=== PATIENT | female | born 1945 | race Caucasian/White ===

== ENCOUNTER 2024-11-22 15:08 | Observation (INO) | payer MEDICARE, MEDICAID ==
[2024-11-22] MEDS ORDERED: Sodium Chloride 0.9% 10 ML Syringe FLUSH PRN (15:13)
[2024-11-22 15:25] LABS: BASOPHILS ABSOLUTE AUTO 0.02 10^3/uL (0.00-0.10); BASOPHILS PERCENT AUTO 0.2 % (0.0-1.0); EOSINOPHILS ABSOLUTE AUTO 0.54 10^3/uL (0.10-0.30); EOSINOPHILS PERCENT AUTO 5.6 % (1.0-3.0); IMMATURE GRAN ABSOLUTE AUTO 0.02 10^3/uL (0.00-0.04); IMMATURE GRAN PERCENT AUTO 0.2 % (0.0-0.4); LYMPHOCYTES ABSOLUTE AUTO 0.70 10^3/uL (1.00-4.00); LYMPHOCYTES PERCENT AUTO 7.3 % (20.0-40.0); MEAN PLATELET VOLUME 11.4 fL (7.4-10.4); MONOCYTES ABSOLUTE AUTO 0.77 10^3/uL (0.10-0.80); MONOCYTES PERCENT AUTO 8.1 % (2.0-8.0); NEUTROPHILS ABSOLUTE AUTO 7.51 10^3/uL (2.50-7.00); NEUTROPHILS PERCENT AUTO 78.6 % (50.0-70.0); PLATELET COUNT,PLT 220 10^3/uL (150-400); RED BLOOD CELL COUNT 4.15 10^6/uL (3.80-5.50); RED CELL DISTRIBUTION WIDTH 17.2 % (11.5-14.5); WHITE BLOOD CELL COUNT,WBC 9.56 10^3/uL (5.00-10.00)
[2024-11-22 15:41] LABS: ALANINE AMINOTRANSFERASE,ALT 26 U/L (14-63); ASPARTATE AMNIOTRANSFERASE,AST 32 U/L (15-37); BILIRUBIN TOTAL 0.6 mg/dL (0.2-1.0); BLOOD UREA NITROGEN,BUN 13 mg/dL (7-18); CARBON DIOXIDE,CO2 32.9 mmol/L (21.0-32.0); CHLORIDE,CL 97 mmol/L (98-107); CREATININE 0.83 mg/dL (0.51-1.17); GLUCOSE RANDOM 103 mg/dL (70-140); POTASSIUM,K 4.9 mmol/L (3.5-5.1); PROTEIN TOTAL,TP 7.4 g/dL (6.4-8.2); SODIUM,NA 134 mmol/L (136-145)
[2024-11-22 15:42] LABS: B-TYPE NATRIURETIC PEPTIDE,BNP 230 pg/mL (0-100); ESTIMATED GFR 72 mL/min (>=60)
[2024-11-22 16:42] LABS: O2 SATURATION ARTERIAL,POC 95.6 % (94-98); PCO2 ARTERIAL,POC 47 mmHg (35-48); PH ARTERIAL,POC 7.42 pH (7.35-7.45); PO2 ARTERIAL,POC 79 mmHg (83-108)
[2024-11-22 16:43] LABS: BASE EXCESS ARTERIAL,POC 5 mmol/L ((-2)-3); HCO3 ARTERIAL,POC 30.4 mmol/L (21-28); TCO2 ARTERIAL,POC 29 mmol/L (22-29)
[2024-11-22] MEDS: Iopamidol 755 Mg/ML 100 ML Bottle IV ONE (17:06)
[2024-11-22 17:33] LABS: APPEARANCE,URINE CLEAR (CLEAR); GLUCOSE,URINE NEGATIVE (NEGATIVE); OCCULT BLOOD,URINE TRACE-INTACT (NEGATIVE)
[2024-11-22 17:41] LABS: EPITHELIAL CELLS,URINE RARE /LPF
[2024-11-22] MEDS: Furosemide 40 MG/4 ML VIAL IVPUSH ONE (18:06)
[2024-11-22] MEDS ORDERED: Fluticasone NASAL Spray 16 GM Bottle NASBOTH PRN (22:33)
[2024-11-22] MEDS ORDERED: Saliva Substitute Oral Spray 120 ML Bottle MUCMEM PRN (22:33)
[2024-11-22] MEDS ORDERED: guaiFENesin 100 MG/5 ML Soln 5 ML UD Cup PO PRN (22:33)
[2024-11-22] MEDS ORDERED: Acetaminophen 650 MG Tab.ER PO PRN (22:33)
[2024-11-22] MEDS ORDERED: Non-Formulary Medication 1 Each (Alendronate Sodium [Alendronate Sodium] 70 MG Tablet) PO SCH (22:45)
[2024-11-22] MEDS: Acetaminophen 650 MG Tab.ER PO SCH (23:50)
[2024-11-23] MEDS: Omeprazole 20 MG Cap.CR PO SCH (05:51)
[2024-11-23 07:30] LABS: BASOPHILS ABSOLUTE AUTO 0.03 10^3/uL (0.00-0.10); BASOPHILS PERCENT AUTO 0.4 % (0.0-1.0); EOSINOPHILS ABSOLUTE AUTO 0.47 10^3/uL (0.10-0.30); EOSINOPHILS PERCENT AUTO 5.6 % (1.0-3.0); IMMATURE GRAN ABSOLUTE AUTO 0.02 10^3/uL (0.00-0.04); IMMATURE GRAN PERCENT AUTO 0.2 % (0.0-0.4); LYMPHOCYTES ABSOLUTE AUTO 0.65 10^3/uL (1.00-4.00); LYMPHOCYTES PERCENT AUTO 7.7 % (20.0-40.0); MEAN PLATELET VOLUME 11.2 fL (7.4-10.4); MONOCYTES ABSOLUTE AUTO 0.66 10^3/uL (0.10-0.80); MONOCYTES PERCENT AUTO 7.8 % (2.0-8.0); NEUTROPHILS ABSOLUTE AUTO 6.62 10^3/uL (2.50-7.00); NEUTROPHILS PERCENT AUTO 78.3 % (50.0-70.0); PLATELET COUNT,PLT 238 10^3/uL (150-400); RED BLOOD CELL COUNT 4.04 10^6/uL (3.80-5.50); RED CELL DISTRIBUTION WIDTH 17.4 % (11.5-14.5); WHITE BLOOD CELL COUNT,WBC 8.45 10^3/uL (5.00-10.00)
[2024-11-23 07:53] LABS: BLOOD UREA NITROGEN,BUN 12.0 mg/dL (7-18); CARBON DIOXIDE,CO2 37.7 mmol/L (21.0-32.0); CHLORIDE,CL 95.0 mmol/L (98-107); CREATININE 0.86 mg/dL (0.51-1.17); EST CRCL DRUG DOSING (CG) 44.6 mL/min; GLUCOSE RANDOM 106.0 mg/dL (70-140); POTASSIUM,K 3.9 mmol/L (3.5-5.1); SODIUM,NA 136.0 mmol/L (136-145)
[2024-11-23 07:59] LABS: ESTIMATED GFR 69.0 mL/min (>=60)
[2024-11-23] MEDS: Acetaminophen 650 MG Tab.ER PO SCH ×2 (08:38→13:42)
[2024-11-23] MEDS: Calcium Citrate/Vitamin D3 315 MG-250 Unit Tab PO SCH (08:41)
[2024-11-23] MEDS: Cholecalciferol (Vitamin D3) 25 MCG Tab PO SCH (08:42)
[2024-11-23] MEDS: Multivitamins with Minerals/Iron/Folic Acid/Lycopene Tab PO SCH (08:42)
[2024-11-23] MEDS: Glycerin/Propylene Glycol Eye Drop 15 mL Bottle EYEBOTH SCH (08:46)
[2024-11-23] MEDS ORDERED: DULOXETINE HCL 60 MG PO SCH (09:00)
[2024-11-23] MEDS: Furosemide 40 MG/4 ML VIAL IVPUSH ONE (10:19)
[2024-11-23] MEDS: Non-Formulary Medication 1 Each (Lutein [Lutein] 20 MG Tablet) PO SCH (19:32)
[2024-11-23] MEDS: CYCLOSPORINE EYEBOTH SCH (19:32)
[2024-11-23] MEDS: POVIDONE EYEBOTH SCH (19:32)
[2024-11-23] MEDS ORDERED: POVIDONE EYEBOTH SCH (21:00)
[2024-11-23] MEDS ORDERED: Acetaminophen 650 MG Tab.ER PO SCH (21:00)
[2024-11-23] MEDS: FLUVOXAMINE 100 MG PO SCH (21:36)
[2024-11-24 07:40] LABS: BASOPHILS ABSOLUTE AUTO 0.02 10^3/uL (0.00-0.10); BASOPHILS PERCENT AUTO 0.3 % (0.0-1.0); EOSINOPHILS ABSOLUTE AUTO 0.53 10^3/uL (0.10-0.30); EOSINOPHILS PERCENT AUTO 6.8 % (1.0-3.0); IMMATURE GRAN ABSOLUTE AUTO 0.01 10^3/uL (0.00-0.04); IMMATURE GRAN PERCENT AUTO 0.1 % (0.0-0.4); LYMPHOCYTES ABSOLUTE AUTO 0.72 10^3/uL (1.00-4.00); LYMPHOCYTES PERCENT AUTO 9.2 % (20.0-40.0); MEAN PLATELET VOLUME 11.1 fL (7.4-10.4); MONOCYTES ABSOLUTE AUTO 1.03 10^3/uL (0.10-0.80); MONOCYTES PERCENT AUTO 13.2 % (2.0-8.0); NEUTROPHILS ABSOLUTE AUTO 5.49 10^3/uL (2.50-7.00); NEUTROPHILS PERCENT AUTO 70.4 % (50.0-70.0); PLATELET COUNT,PLT 197 10^3/uL (150-400); RED BLOOD CELL COUNT 3.91 10^6/uL (3.80-5.50); RED CELL DISTRIBUTION WIDTH 17.1 % (11.5-14.5); WHITE BLOOD CELL COUNT,WBC 7.80 10^3/uL (5.00-10.00)
[2024-11-24 07:54] LABS: BLOOD UREA NITROGEN,BUN 13.0 mg/dL (7-18); CARBON DIOXIDE,CO2 33.4 mmol/L (21.0-32.0); CHLORIDE,CL 96.0 mmol/L (98-107); CREATININE 0.86 mg/dL (0.51-1.17); EST CRCL DRUG DOSING (CG) 44.6 mL/min; GLUCOSE RANDOM 109.0 mg/dL (70-140); PHOSPHORUS 4.2 mg/dL (2.6-4.7); POTASSIUM,K 4.5 mmol/L (3.5-5.1); SODIUM,NA 135.0 mmol/L (136-145)
[2024-11-24 07:55] LABS: ESTIMATED GFR 69.0 mL/min (>=60)
[2024-11-24] MEDS: Furosemide 40 MG/4 ML VIAL IVPUSH ONE (10:06)
== END 2024-11-24 13:13 ==
LOC: KA.ED 15:08 → KA.MS 19:10
PROVIDERS: ADMIT Family Medicine; ATTEND Family Medicine
DX: I11.0 Hypertensive heart disease with heart failure (principal); I50.33 Acute on chronic diastolic (congestive) heart failure; J96.91 Respiratory failure, unspecified with hypoxia; I48.11 Longstanding persistent atrial fibrillation; E66.813 Obesity, class 3; F32.9 Major depressive disorder, single episode, unspecified; Z88.8 Allergy status to other drugs, medicaments and biological substances; Z68.42 Body mass index [BMI] 45.0-49.9, adult; Z79.899 Other long term (current) drug therapy
CPT/HCPCS: 36415; 36600; 71275; 80048; 80053; 80069; 81001; 82803; 83880; 84484; 85025; 85379; 86140; 87040; 96374; 99285; A9270; G0378; J1938; Q3014; Q9967; 93010; 99284

== ENCOUNTER 2024-12-29 08:51 | Inpatient (IN) | payer MEDICARE, MEDICAID ==
[2024-12-29 09:39] LABS: BASOPHILS ABSOLUTE AUTO 0.02 10^3/uL (0.00-0.10); BASOPHILS PERCENT AUTO 0.2 % (0.0-1.0); EOSINOPHILS ABSOLUTE AUTO 0.09 10^3/uL (0.10-0.30); EOSINOPHILS PERCENT AUTO 0.8 % (1.0-3.0); IMMATURE GRAN ABSOLUTE AUTO 0.03 10^3/uL (0.00-0.04); IMMATURE GRAN PERCENT AUTO 0.3 % (0.0-0.4); LYMPHOCYTES ABSOLUTE AUTO 1.20 10^3/uL (1.00-4.00); LYMPHOCYTES PERCENT AUTO 10.5 % (20.0-40.0); MEAN PLATELET VOLUME 11.8 fL (7.4-10.4); MONOCYTES ABSOLUTE AUTO 1.42 10^3/uL (0.10-0.80); MONOCYTES PERCENT AUTO 12.5 % (2.0-8.0); NEUTROPHILS ABSOLUTE AUTO 8.64 10^3/uL (2.50-7.00); NEUTROPHILS PERCENT AUTO 75.7 % (50.0-70.0); PLATELET COUNT,PLT 232 10^3/uL (150-400); RED BLOOD CELL COUNT 3.98 10^6/uL (3.80-5.50); RED CELL DISTRIBUTION WIDTH 19.6 % (11.5-14.5); WHITE BLOOD CELL COUNT,WBC 11.40 10^3/uL (5.00-10.00)
[2024-12-29 09:53] LABS: ALANINE AMINOTRANSFERASE,ALT 56.0 U/L (14-63); ASPARTATE AMNIOTRANSFERASE,AST 81.0 U/L (15-37); BILIRUBIN TOTAL 1.5 mg/dL (0.2-1.0); BLOOD UREA NITROGEN,BUN 28.0 mg/dL (7-18); CARBON DIOXIDE,CO2 31.5 mmol/L (21.0-32.0); CHLORIDE,CL 94.0 mmol/L (98-107); CREATININE 1.04 mg/dL (0.51-1.17); EST CRCL DRUG DOSING (CG) 35.26 mL/min; GLUCOSE RANDOM 111.0 mg/dL (70-140); PROTEIN TOTAL,TP 7.1 g/dL (6.4-8.2); SODIUM,NA 134.0 mmol/L (136-145)
[2024-12-29 09:54] LABS: B-TYPE NATRIURETIC PEPTIDE,BNP 483.0 pg/mL (0-100)
[2024-12-29 09:57] LABS: ESTIMATED GFR 55.0 mL/min (>=60)
[2024-12-29 09:58] LABS: POTASSIUM,K 5.4 mmol/L (3.5-5.1)
[2024-12-29 10:09] LABS: APPEARANCE,URINE CLEAR (CLEAR); GLUCOSE,URINE NEGATIVE (NEGATIVE); OCCULT BLOOD,URINE TRACE-INTACT (NEGATIVE)
[2024-12-29 10:19] LABS: SQUAMOUS EPITHELIAL CELLS,UR MODERATE /HPF (NOT SEEN)
[2024-12-29] MEDS ORDERED: Acetaminophen/HYDROcodone 325-5 MG Tab PO PRN (13:10)
[2024-12-29] MEDS ORDERED: Ondansetron 4 MG Tab.DIS PO PRN (13:10)
[2024-12-29 13:26] LABS: HCO3 VENOUS,POC 31 mmol/L (22-29); O2 SATURATION VENOUS,POC 55 %; PCO2 VENOUS,POC 59 mmHg (41-51); PH VENOUS,POC 7.33 pH (7.32-7.43); PO2 VENOUS,POC 32 mmHg
[2024-12-29] MEDS: Metoprolol Tartrate 5 MG/5 ML SDV IVPUSH PRN (16:25)
[2024-12-29] MEDS: Nystatin Topical Powder 15 GM Bottle TOP SCH (20:12)
[2024-12-29] MEDS: LORazepam 2 MG/ML SDV IVPUSH PRN (20:18)
[2024-12-30 07:16] LABS: MEAN PLATELET VOLUME 12.2 fL (7.4-10.4); RED BLOOD CELL COUNT 3.94 10^6/uL (3.80-5.50); RED CELL DISTRIBUTION WIDTH 19.9 % (11.5-14.5); WHITE BLOOD CELL COUNT,WBC 10.16 10^3/uL (5.00-10.00)
[2024-12-30 07:35] LABS: BLOOD UREA NITROGEN,BUN 28.0 mg/dL (7-18); CARBON DIOXIDE,CO2 32.8 mmol/L (21.0-32.0); CHLORIDE,CL 97.0 mmol/L (98-107); CREATININE 0.92 mg/dL (0.51-1.17); EST CRCL DRUG DOSING (CG) 39.86 mL/min; GLUCOSE RANDOM 101.0 mg/dL (70-140); POTASSIUM,K 4.7 mmol/L (3.5-5.1); SODIUM,NA 136.0 mmol/L (136-145)
[2024-12-30 07:41] LABS: ESTIMATED GFR 64.0 mL/min (>=60)
[2024-12-30 07:53] LABS: PLATELET COUNT,PLT 180 10^3/uL (150-400)
[2024-12-30 07:54] LABS: BAND PERCENT MAN 0 % (4-12); BASOPHILS PERCENT MAN 0 % (0-1); EOSINOPHILS PERCENT MAN 3 % (1-3); LYMPHOCYTES PERCENT MAN 11 % (20-40); MONOCYTES PERCENT MAN 15 % (2-8); SEG NEUTROPHILS PERCENT MAN 71 % (50-70)
[2024-12-30 07:55] LABS: PLATELET COUNT ESTIMATE ADEQUATE
[2024-12-30] MEDS ORDERED: DULOXETINE HCL 60 MG PO SCH (09:00)
[2024-12-30] MEDS: VANCOmycin 1.25 GM/250 ML 1.25 GM in Premix Bag 1 BAG IV SCH (11:06)
[2024-12-31] MEDS: Diltiazem 25 MG/5 ML SDV IVPUSH ONE (00:35)
[2024-12-31 14:21] VITALS: BP 125/98; PULSE 75
== END 2024-12-31 14:19 | disposition home or self-care (01) | DRG 871 ==
LOC: KA.ED 08:51 → KA.MS 12:20
PROVIDERS: ADMIT Family Medicine; ATTEND Family Medicine
DX: A41.9 Sepsis, unspecified organism (principal); J18.9 Pneumonia, unspecified organism; J96.21 Acute and chronic respiratory failure with hypoxia; Z68.41 Body mass index [BMI] 40.0-44.9, adult; R41.82 Altered mental status, unspecified; R09.02 Hypoxemia; I12.9 Hypertensive chronic kidney disease with stage 1 through stage 4 chronic kidney disease, or unspecified chronic kidney disease; I50.32 Chronic diastolic (congestive) heart failure; I13.0 Hypertensive heart and chronic kidney disease with heart failure and stage 1 through stage 4 chronic kidney disease, or unspecified chronic kidney disease; R65.20 Severe sepsis without septic shock; Z88.1 Allergy status to other antibiotic agents; Z66 Do not resuscitate; I95.9 Hypotension, unspecified; I48.91 Unspecified atrial fibrillation; G47.30 Sleep apnea, unspecified; K21.9 Gastro-esophageal reflux disease without esophagitis; N18.9 Chronic kidney disease, unspecified; M79.7 Fibromyalgia; M19.90 Unspecified osteoarthritis, unspecified site; M81.0 Age-related osteoporosis without current pathological fracture; M06.9 Rheumatoid arthritis, unspecified; G62.9 Polyneuropathy, unspecified; F41.9 Anxiety disorder, unspecified; F32.9 Major depressive disorder, single episode, unspecified; E66.9 Obesity, unspecified; Z88.8 Allergy status to other drugs, medicaments and biological substances; Z79.899 Other long term (current) drug therapy; Z98.49 Cataract extraction status, unspecified eye; Z90.49 Acquired absence of other specified parts of digestive tract; Z98.890 Other specified postprocedural states; Z90.710 Acquired absence of both cervix and uterus; Z90.722 Acquired absence of ovaries, bilateral; Z99.81 Dependence on supplemental oxygen
CPT/HCPCS: 36415; 70450; 71045; 80048; 80053; 80202; 81001; 82803; 83605; 83880; 84484; 85025; 87040; 92610-GN; 93010; 96360; 96374; 96375; 99223-GT; 99233-GT; 99239-GT; 99284; 99285-25; A9270-GY; J0692; J1163; J1650; J2060; J3373; J3375; J3490; J7030; J7050; Q3014